=== PATIENT | male | born 1965 | race Caucasian/White ===

== ENCOUNTER 2019-04-30 13:57 | Observation (INO) | payer BC, OTHER ==
[2019-04-30] MEDS ORDERED: NALOXONE 0.4 MG/ML 1 ML VIAL IV PRN (14:56)
[2019-04-30] MEDS ORDERED: TEMAZEPAM 15 MG CAP PO PRN (14:59)
[2019-04-30] MEDS ORDERED: ALPRAZolam 0.25 MG TAB PO PRN (14:59)
[2019-04-30] MEDS ORDERED: SODIUM CHLORIDE 0.9% 1,000 ML IV SCH (15:00)
[2019-04-30] MEDS: ACETAMINOPHEN TAB 325 MG TAB PO PRN ×2 (15:38→23:00)
--- NOTE | 2019-04-30 15:39 | XR ---
EXAMINATION TYPE: XR chest 1V portable DATE OF EXAM: 04/30/2019 COMPARISON: NONE HISTORY: Short of breath TECHNIQUE: Single view FINDINGS: Heart and mediastinum are normal. Lungs are clear. Diaphragm is normal. Bony thorax appears normal. IMPRESSION: Normal chest.
[2019-04-30 15:42] LABS: Basophils % (A) 0 %; Eosinophils # (A) 0.2 k/uL (0-0.7); Eosinophils % (A) 3 %; HCT 41.8 % (39.0-53.0); HGB 14.3 gm/dL (13.0-17.5); Lymphocytes # (A) 0.5 k/uL (1.0-4.8); Lymphocytes % (A) 8 %; MCH 30.5 pg (25.0-35.0); MCHC 34.3 g/dL (31.0-37.0); MCV 89.1 fL (80.0-100.0); Mean Platelet Volume 8.2; Monocytes # (A) 0.5 k/uL (0-1.0); Monocytes % (A) 9 %; Neutrophils # (A) 4.4 k/uL (1.3-7.7); Neutrophils % (A) 78 %; Platelet Count 130 k/uL (150-450); RBC 4.69 m/uL (4.30-5.90); RDW 13.3 % (11.5-15.5); WBC 5.6 k/uL (3.8-10.6)
[2019-04-30 15:52] LABS: ALT 37 U/L (4-49); AST 40 U/L (17-59); African American GFR (CKD) >90 (>60 ml/min/1.73 sqM); Albumin 4.9 g/dL (3.5-5.0); Alkaline Phosphatase 55 U/L (38-126); Anion Gap 11 mmol/L; Blood Urea Nitrogen 15 mg/dL (9-20); Calcium 9.4 mg/dL (8.4-10.2); Carbon Dioxide 24 mmol/L (22-30); Chloride 100 mmol/L (98-107); Glucose 117 mg/dL (74-99); Magnesium 1.7 mg/dL (1.6-2.3); Non-African American GFR(CKD) >90 (>60 ml/min/1.73 sqM); Potassium 4.6 mmol/L (3.5-5.1); Sodium 135 mmol/L (137-145); Total Bilirubin 0.7 mg/dL (0.2-1.3); Total Protein 7.5 g/dL (6.3-8.2)
[2019-04-30] MEDS: METOPROLOL TARTRATE 12.5 MG TAB PO SCH ×2 (17:41→23:00)
[2019-04-30] MEDS: AMOXIC-POT CLAV 875-125MG 1 EACH TAB PO SCH ×3 (17:41→23:02)
[2019-04-30] MEDS ORDERED: FLUTICASONE 50MCG/SPRAY NASAL 16GM EA NOSTRIL PRN (18:32)
[2019-04-30] MEDS ORDERED: PSEUDOEPHEDRINE 30 MG TAB PO PRN (18:36)
--- NOTE | 2019-04-30 20:29 | HP ---
HISTORY AND PHYSICAL CHIEF COMPLAINT: Sinus congestion and cough and fever. HISTORY OF PRESENT ILLNESS: This 53-year-old gentleman with a past history of apparent irregular heart rhythm, history of DJD, sleep apnea/CPAP/history of anxiety, depression, PTSD, being followed by [facility] in the outpatient setting, apparently not feeling well over the past several days. Patient went to [facility] [place] and Dr. Koch called me about atrial fibrillation. The patient was directly transferred to [facility] and admitted for further evaluation and treatment. There is no history of fever, rigors or chills. No history of headache, loss of consciousness, seizures at this time. PAST MEDICAL HISTORY: Atrial fibrillation, history of cardiac irregularity, history of DJD, sleep apnea, anxiety, depression, PTSD. MEDICATIONS: Medications prior to admission include home medications are: 1. [place] spray. 2. [place]-3 fatty acid. 3. Multivitamins. 4. Glucosamine. 5. Fluticasone nasal spray. 6. Celexa. 7. Zyrtec. 8. Augmentin 875 g 1 p.o. b.i.d. ALLERGIES: None. FAMILY HISTORY: Family history of CHF, myocardial infarction, significant heart history in the family. 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 No history of smoking. Occasional alcohol intake. REVIEW OF SYSTEMS: ENT: No diminished vision. No diminished hearing. CARDIOVASCULAR system as mentioned earlier. RESPIRATIONS as mentioned earlier. GI no nausea or vomiting. no dysuria. Nervous system: No numbness or weakness. ALLERGY/IMMUNOLOGY: No asthma or hayfever. MUSCULOSKELETAL as mentioned earlier. Hematology/Oncology: No history of anemia. ENDOCRINE: No history of diabetes or hypothyroidism. Constitutional: As mentioned earlier. DERMATOLOGY: Negative. RHEUMATOLOGY negative. PSYCHIATRY as mentioned earlier. PHYSICAL EXAM: Patient is alert, oriented x3. Pulse is 78. Blood pressure is 120/70. Respiration 16. Temperature 98.8, T-max 100 degrees Fahrenheit, pulse ox 98% on room air. HEENT: Conjunctivae normal. NECK: No JVD. CARDIOVASCULAR: S1, S2 muffled. RESPIRATORY SYSTEM: Breath sounds diminished at the bases. No rhonchi. No crackles. ABDOMEN: Soft, nontender. No mass palpable. LEGS: No edema. No swelling. NERVOUS SYSTEM: Higher functions as mentioned earlier. Moves all four limbs. No focal motor or sensory deficits. Lymphatics: No lymph nodes palpable in the neck, axillae or groin. SKIN: No ulcer, rash or bleeding. JOINTS: No active deforming arthropathy. LABS: WBC 5.6, hemoglobin 14.3, platelets 130. Sodium 135. Creatinine is 0.85. Influenza negative. ASSESSMENT: 1. Fever, possible upper respiratory infection. 2. Atrial fibrillation. 3. Degenerative joint disease. 4. Sleep apnea. 5. Anxiety, depression, PTSD. 6. Mild thrombocytopenia. 7. Mild hyponatremia. 8. Increased random blood sugar. RECOMMENDATIONS AND DISCUSSION: In this 53-year-old gentleman who presented with multiple complex medical issues, we will monitor the patient closely, continue the current medications, management and symptomatic treatment. I recommend broad-spectrum antibiotics. Cardiology consultation. Telemetry. Two-D echo with Doppler. A fasting lipid profile. I would also recommend further cardiovascular workup including possible stress test as an outpatient because of the patient's cardiac history. Otherwise, prognosis guarded because of multiple complex medical issues. Further recommendations to follow. A copy of dictation being [facility] [place]. MMODL / IJN: [id number] /
[2019-04-30 21:36] LABS: Appearance,Urine Clear (Clear); Bilirubin,Urine Negative (Negative); Blood,Urine Negative (Negative); Color,Urine Colorless; Glucose,Urine (UA) Negative (Negative); Ketones,Urine Negative (Negative); Leukocyte Esterase,Urine Negative (Negative); Nitrite,Urine Negative (Negative); PH, Urine 6.5 (5.0-8.0); Protein,Urine Negative (Negative); Specific Gravity,Urine 1.006 (1.001-1.035); Urobilinogen,Urine <2.0 mg/dL (<2.0)
[2019-05-01] MEDS ORDERED: NON FORMULARY DRUG (Glucosam/Chon-Msm1/C/Mang/Bosw [Glucosamine-Chondroitin Tablet] 1 TAB) PO SCH (07:00)
[2019-05-01] MEDS ORDERED: NON FORMULARY DRUG (Omega-3 Fatty Acids/Fish Oil [Fish Oil 1,000 Mg Softgel] 1 CAP) PO SCH (07:00)
[2019-05-01] MEDS ORDERED: LORATADINE 10 MG TAB PO SCH (07:00)
[2019-05-01 07:19] LABS: Basophils % (A) 1 %; Eosinophils # (A) 0.2 k/uL (0-0.7); Eosinophils % (A) 3 %; HCT 42.2 % (39.0-53.0); HGB 14.4 gm/dL (13.0-17.5); Lymphocytes # (A) 1.3 k/uL (1.0-4.8); Lymphocytes % (A) 23 %; MCH 30.1 pg (25.0-35.0); MCHC 34.1 g/dL (31.0-37.0); MCV 88.3 fL (80.0-100.0); Mean Platelet Volume 8.1; Monocytes # (A) 0.7 k/uL (0-1.0); Monocytes % (A) 12 %; Neutrophils # (A) 3.4 k/uL (1.3-7.7); Neutrophils % (A) 59 %; Platelet Count 149 k/uL (150-450); RBC 4.77 m/uL (4.30-5.90); RDW 13.4 % (11.5-15.5); WBC 5.7 k/uL (3.8-10.6)
[2019-05-01 07:30] LABS: African American GFR (CKD) >90 (>60 ml/min/1.73 sqM); Anion Gap 8 mmol/L; Blood Urea Nitrogen 17 mg/dL (9-20); Carbon Dioxide 24 mmol/L (22-30); Chloride 102 mmol/L (98-107); Cholesterol 156 mg/dL (<200); Glucose 99 mg/dL (74-99); HDL Cholesterol 22 mg/dL (40-60); LDL Cholesterol,Calculated 62 mg/dL (0-99); Non-African American GFR(CKD) 85 (>60 ml/min/1.73 sqM); Potassium 4.5 mmol/L (3.5-5.1); Sodium 134 mmol/L (137-145); Triglycerides 362 mg/dL (<150)
[2019-05-01] MEDS ORDERED: PANTOPRAZOLE 40 MG TABLET PO SCH (07:30)
--- NOTE | 2019-05-01 08:08 | P.CRDCN ---
History of Present Illness Consult date: 05/01/19 Requesting physician: Alyson Armstrong Consult reason: atrial fibrillation Chief complaint: A. fib History of present illness: This is a pleasant 53-year-old gentleman with no prior documented history of hypertension, nondiabetic, no hyperlipidemia, no prior history of stroke, he is a nonsmoker, rarely drinks alcohol, drinks one to 2 cups of coffee per day. He does have a strong family history of premature coronary artery disease in his brother who had a myocardial infarction. Patient states that he felt like he was developing a sinus infection, went to the clinic to be seen, and EKG was performed there which showed atrial fibrillation and the patient was recommended to come to the hospital for further evaluation and treatment. Patient does have an apple watchman states that in January it was telling him that he was in atrial fibrillation, however because he is completely as ymptomatic he thought the watch was wrong. Atrial fibrillation with controlled ventricular response. Blood pressure this morning 114/70 with a heart rate in the 60s, 94% on room air. Temperature 101.5 at midnight, 98.4 this morning. White blood cell count 5.7, hemoglobin 14.4, platelet count 149. Sodium 134, potassium 4.5, BUN 17, creatinine 0.9. Magnesium 1.7. Troponins negative 3. Cholesterol 156, LDL 62, HDL 22, triglycerides 156, TSH 0.88. Influenza A and B are negative. Past Medical History Past Medical History: Atrial Fibrillation, Osteoarthritis (OA), Sleep Apnea/CPAP/BIPAP History of Any Multi-Drug Resistant Organisms: None Reported Past Surgical History: Hernia Repair Additional Past Surgical History / Comment(s): hernia repair at age 2 Past Anesthesia/Blood Transfusion Reactions: No Reported Reaction Past Psychological History: Anxiety, Depression, PTSD Smoking Status: Never smoker - Past Family History Father Family Medical History: Congestive Heart Failure (CHF), Myocardial Infarction (ME) Brother(s) Family Medical History: Myocardial Infarction (ME) Additional Family Medical History / Comment(s): age 40; from [place] Medications and Allergies Home Medications Medication Instructions Recorded Confirmed Type Amoxic-Pot Clav 875-125Mg 1 tab PO BID 04/30/19 04/30/19 History [Augmentin 875-125] Cetirizine HCl [Zyrtec] 10 mg PO DAILY@0700 04/30/19 04/30/19 History Citalopram Hydrobromide [CeleXA] 30 mg PO AC-LUNCH 04/30/19 04/30/19 History Fluticasone Nasal [place] [Flonase 1 spray EA NOSTRIL BID PRN 04/30/19 04/30/19 History Nasal [place]] Glucosam/Juan [place]-Msm1/C/Duy/Bosw 1 tab PO TID@0700,1200,1800 04/30/19 04/30/19 History [Glucosamine-Chondroitin Tablet] Multivitamins, Thera [Multivitamin 1 tab PO DAILY 04/30/19 04/30/19 History (formulary)] [place]-3 Fatty Acids/Fish Oil [Fish 1 cap PO BID@0700,1800 04/30/19 04/30/19 History Oil 1,000 mg Softgel] Sodium Chloride [[place]] 1 spray EA NOSTRIL BID PRN 04/30/19 04/30/19 History Allergies Allergy/AdvReac Type Severity Reaction Status Date / Time No Known Drug Allergies Allergy Unknown Verified 04/30/19 16:19 Physical Exam Vitals: Vital Signs Temp Pulse Resp BP Pulse Ox 05/01/19 04:00 98.4 F 67 18 114/77 94 L 05/01/19 00:00 101.5 F H 78 16 115/57 94 L 04/30/19 20:00 98.7 F 66 16 99/62 95 04/30/19 17:46 16 04/30/19 17:35 98.8 F 78 16 128/77 96 04/30/19 14:56 95 04/30/19 14:50 16 04/30/19 14:35 100.0 F H 82 16 131/89 96 Intake and Output 04/30/19 05/01/19 05/01/19 22:59 06:59 14:59 Intake Total 480 40 Output Total 300 700 Balance 180 -660 Intake: IV 40 40 Invasive Line 1 40 40 Oral 440 Output: Urine 300 700 Other: # Voids 2 Weight 93.3 kg PHYSICAL EXAMINATION: GENERAL: 53-year-old gentleman in no acute distress at the time of my examination HEENT: Head is atraumatic, normocephalic. Pupils equal, round. Sclera anicteric. Conjunctiva are clear. Mucous membranes of the mouth are moist. Neck is supple. There is no elevated jugular venous pressure. No carotid bruit is heard. HEART EXAMINATION: Heart S1 and S2 irregularly irregular CHEST EXAMINATION: Lungs are clear to auscultation and precussion. No chest wall tenderness is noted on palpation or with deep breathing. ABDOMEN: Soft, nontender. Bowel sounds are heard. No organomegaly noted. EXTREMITIES: 2+ peripheral pulses with no evidence of peripheral edema and no calf tenderness noted. NEUROLOGIC patient is awake, alert and oriented 3 . . Results 05/01/19 06:47 05/01/19 06:47 Cardiac Enzymes 04/30/19 04/30/19 05/01/19 Range/Units 15:30 17:40 00:42 AST 40 (17-59) U/L Troponin I <0.012 <0.012 (0.000-0.034) ng/mL 05/01/19 Range/Units 06:47 AST (17-59) U/L Troponin I <0.012 (0.000-0.034) ng/mL Lipids 05/01/19 Range/Units 06:47 Triglycerides 362 H (<150) mg/dL Cholesterol 156 (<200) mg/dL HDL Cholesterol 22 L (40-60) mg/dL CBC 04/30/19 05/01/19 Range/Units 15:30 06:47 WBC 5.6 5.7 (3.8-10.6) k/uL RBC 4.69 4.77 (4.30-5.90) m/uL Hgb 14.3 14.4 (13.0-17.5) gm/dL Hct 41.8 42.2 (39.0-53.0) % Plt Count 130 L 149 L (150-450) k/uL Comprehensive Metabolic Panel 04/30/19 05/01/19 Range/Units 15:30 06:47 Sodium 135 L 134 L (137-145) mmol/L Potassium 4.6 4.5 (3.5-5.1) mmol/L Chloride 100 102 (98-107) mmol/L Carbon Dioxide 24 24 (22-30) mmol/L BUN 15 17 (9-20) mg/dL Creatinine 0.85 0.99 (0.66-1.25) mg/dL Glucose 117 H 99 (74-99) mg/dL Calcium 9.4 9.0 (8.4-10.2) mg/dL AST 40 (17-59) U/L ALT 37 (4-49) U/L Alkaline Phosphatase 55 (38-126) U/L Total Protein 7.5 (6.3-8.2) g/dL Albumin 4.9 (3.5-5.0) g/dL Current Medications Generic Name Dose Route Start Last Admin Trade Name Freq PRN Reason Stop Dose Admin Acetaminophen 650 mg 04/30/19 14:56 04/30/19 23:00 Tylenol Tab PO 650 mg Q6HR PRN Administration Mild Pain or Fever > 100.5 Alprazolam 0.25 mg 04/30/19 14:59 Xanax PO TID PRN Anxiety Amoxicillin/Clavulanate Potassium 1 each 04/30/19 15:15 04/30/19 23:02 Augmentin 875-125 PO 1 each Q12HR YOKASTA Administration Citalopram Hydrobromide 30 mg 05/01/19 12:30 Celexa PO AC-LUNCH [facility] Fluticasone Propionate 1 spray 04/30/19 18:32 Flonase Nasal [place] EA NOSTRIL BID PRN Allergy Symptoms Sodium Chloride 1,000 mls @ 20 mls/hr 04/30/19 15:00 04/30/19 15:39 Saline 0.9% IV 20 mls/hr .Q24H YOKASTA Administration Loratadine 10 mg 05/01/19 07:00 05/01/19 06:33 Claritin PO 10 mg DAILY@0700 YOKASTA Administration Metoprolol Tartrate 12.5 mg 04/30/19 16:45 04/30/19 23:00 Lopressor PO 12.5 mg BID YOKASTA Administration Multivitamins 1 each 05/01/19 09:00 Theragran PO DAILY YOKASTA Naloxone HCl 0.2 mg 04/30/19 14:56 Narcan IV Q2M PRN Opioid Reversal Pantoprazole Sodium 40 mg 05/01/19 07:30 05/01/19 06:33 Protonix PO 40 mg AC-BRKFST YOKASTA Administration Pseudoephedrine HCl 30 mg 04/30/19 18:36 Sudafed PO Q6HR PRN Nasal Congestion Temazepam 15 mg 04/30/19 14:59 Restoril PO HS PRN Insomnia Intake and Output 04/30/19 05/01/19 05/01/19 22:59 06:59 14:59 Intake Total 480 40 Output Total 300 700 Balance 180 -660 Intake: IV 40 40 Invasive Line 1 40 40 Oral 440 Output: Urine 300 700 Other: # Voids 2 Weight 93.3 kg 05/01/19 06:47 05/01/19 06:47 EKG Interpretations (text) EKG shows atrial fibrillation with a controlled ventricular response Assessment and Plan Plan: Assessment and plan #1 atrial fibrillation, appears to be of new onset for the patient #2 fever with possible upper respiratory infection #3 sleep apnea #4 anxiety, depression, PTSD Plan We will obtain an echocardiogram with Doppler study. Patient's TSH level is normal. He has been initiated on beta darío, metoprolol 12-1/2 mg one tablet by mouth twice a day, heart rate in the 60s this morning. We will put the patient on Eliquis 5mg PO BID. The patient has a CHADSVASC score of 0. However the plan would be to clear the patient on his current infection, scheduled patient for a CHERI and cardioversion electively as an outpatient. Further recommendations to follow. DNP note has been reviewed, I agree with a documented findings and plan of care. Patient was seen and examined.
[2019-05-01] MEDS ORDERED: APIXABAN 5 MG TAB PO SCH (09:00)
[2019-05-01] MEDS ORDERED: MULTIVITAMINS, THERA 1 EACH TAB PO SCH (09:00)
[2019-05-01] MEDS: METOPROLOL TARTRATE 12.5 MG TAB PO SCH (09:39)
[2019-05-01] MEDS: AMOXIC-POT CLAV 875-125MG 1 EACH TAB PO SCH (09:39)
[2019-05-01 10:47] VITALS: BP 119/71; PULSE 73; RESP 20; TEMP 98.8
--- NOTE | 2019-05-01 11:30 | ECHOF ---
Referral Reason:afib MEASUREMENTS -------- HEIGHT: 172.7 cm WEIGHT: 93.0 kg BP: 114/77 RVIDd: 3.4 cm (< 3.3) IVSd: 1.5 cm (0.6 - 1.1) LVIDd: 4.4 cm (3.9 - 5.3) LVPWd: 1.3 cm (0.6 - 1.1) IVSs: 1.7 cm LVIDs: 3.0 cm LVPWs: 1.6 cm LA Diam: 3.9 cm (2.7 - 3.8) LAESV Index (A-L): 23.96 ml/m Ao Diam: 3.6 cm (2.0 - 3.7) MV EXCURSION: 18.872 mm (> 18.000) MV EF SLOPE: 133 mm/s (70 - 150) EPSS: 0.5 cm RAP: 5.00 mmHg RVSP: 25.12 mmHg TAPSE: 18.66 mm FINDINGS -------- Atrial fibrillation. This was a technically good study. The left ventricular size is normal. There is moderate concentric left ventricular hypertrophy. O verall left ventricular systolic function is normal with, an EF between 55 - 60 %. The right ventricle is mildly enlarged. Normal LA size by volume 22+/-6 ml/m2. The right atrium is normal in size. Interatrial and interventricular septum intact. The aortic valve is trileaflet and appears structurally normal. Mild mitral regurgitation is present. Mild tricuspid regurgitation present. Right ventricular systolic pressure is normal at < 35 mmHg. Trace/mild (physiologic) pulmonic regurgitation. The aortic root size is normal. Normal inferior vena cava with normal inspiratory collapse consistent with estimated right atrial pre ssure of 5 mmHg. The inferior vena cava is mildly dilated. There is no pericardial effusion. CONCLUSIONS -------- 1. Atrial fibrillation. 2. This was a technically good study. 3. The left ventricular size is normal. 4. There is moderate concentric left ventricular hypertrophy. 5. Overall left ventricular systolic function is normal with, an EF between 55 - 60 %. 6. The right ventricle is mildly enlarged. 7. Normal LA size by volume 22+/-6 ml/m2. 8. The right atrium is normal in size. 9. Interatrial and interventricular septum intact. 10. The aortic valve is trileaflet and appears structurally normal. 11. Mild mitral regurgitation is present. 12. Mild tricuspid regurgitation present. 13. Right ventricular systolic pressure is normal at < 35 mmHg. 14. Trace/mild (physiologic) pulmonic regurgitation. 15. The aortic root size is normal. 16. Normal inferior vena cava with normal inspiratory collapse consistent with estimated right atrial pressure of 5 mmHg. 17. The inferior vena cava is mildly dilated. 18. There is no pericardial effusion. METER SETTER: Kajal Valdes RDCS
[2019-05-01] MEDS ORDERED: CITALOPRAM HYDROBROMIDE 10 MG TAB PO SCH (12:30)
--- NOTE | 2019-05-02 08:52 | P.DS ---
Providers Date of admission: 04/30/19 14:24 Expected date of discharge: 05/01/19 Attending physician: Alyson Armstrong Consults: 04/30/19 14:57 Consult Physician Routine Consulting Provider: Sheila Whiting Consult Reason/Comments: afib Do you want consulting provider notified?: Yes Primary care physician: Stated None Hospital Course: Final diagnosis Fever, possible upper respiratory infection Atrial fibrillation Degenerative joint disease Sleep apnea Anxiety, depression, PTSD Mild thrombocytopenia Mild hyponatremia Increased random blood sugar Discharge disposition Patient is being discharged in stable condition with guarded prognosis to home and will follow-up with Dr. Sabillon in the [facility] upon discharge. Patient will also follow-up with cardiology in 1-2 weeks to discuss possible CHERI with cardioversion in the outpatient setting. Patient will continue with metoprolol along with Eliquis upon discharge. Total time taken is 35 minutes. History of present illness This is a 53-year-old male who was recently admitted from [facility] urgent care for atrial fibrillation and is being closely monitored. Cardiology is following. Patient underwent an echo showing atrial fibrillation with overall left ventricular systolic function being normal with an EF between 55 and 60%. There is also some mild mitral and tricuspid regurgitation present. and patient is currently on Augmentin for possible upper respiratory infection and will need to continue until infection is clear and will follow-up with Dr. Sabillon along with cardiology for possible CHERI with cardioversion in the outpatient setting. Patient was started on Eliquis and metoprolol with controlled heart rate at this time. Patient continues to have a cough and will be given Robitussin for di scharge. Patient instructed to continue taking his Augmentin until finished. Currently no reports of chest pain, shortness of breath, or palpitations. Patient is afebrile. No reports of nausea or vomiting and patient is tolerating diet. Guarded prognosis. On exam vital signs are stable. Temp is 98.8 F, pulse is 73, respirations are 20, blood pressure is 119/71, oxygen saturation is 98% on room air. Cardio S1, S2 are muffled. Respiratory system shows diminished breath sounds at the bases with rhonchi or wheezing noted. Abdomen is soft and nontender. Nervous system shows no focal deficits. Please refer to medication reconciliation sheet for a list of medications. Patient Condition at Discharge: Stable Plan - Discharge Summary Discharge Rx Participant: No New Discharge Prescriptions: New Apixaban [Eliquis] 5 mg PO BID 30 Days #60 tab Metoprolol Tartrate [Lopressor] 12.5 mg PO BID 30 Days #60 tab guaiFENesin SYRUP 100MG/5ML [Robitussin] 0 mg PO TID PRN #120 ml PRN Reason: Cough Continue [place]-3 Fatty Acids/Fish Oil [Fish Oil 1,000 mg Softgel] 1 cap PO BID@0700,1800 Multivitamins, Thera [Multivitamin (formulary)] 1 tab PO DAILY Glucosam/[place]-Msm1/C/Duy/Bosw [Glucosamine-Chondroitin Tablet] 1 tab PO TID@0700,1200,1800 Citalopram Hydrobromide [CeleXA] 30 mg PO AC-LUNCH Cetirizine HCl [Zyrtec] 10 mg PO DAILY@0700 Fluticasone Nasal [place] [Flonase Nasal [place]] 1 spray EA NOSTRIL BID PRN PRN Reason: Allergy Symptoms Amoxic-Pot Clav 875-125Mg [Augmentin 875-125] 1 tab PO BID Sodium Chloride [[place]] 1 spray EA NOSTRIL BID PRN PRN Reason: Congestion Discharge Medication List Amoxic-Pot Clav 875-125Mg [Augmentin 875-125] 1 tab PO BID 04/30/19 [History] Cetirizine HCl [Zyrtec] 10 mg PO DAILY@0700 04/30/19 [History] Citalopram Hydrobromide [CeleXA] 30 mg PO AC-LUNCH 04/30/19 [History] Fluticasone Nasal [place] [Flonase Nasal [place]] 1 spray EA NOSTRIL BID PRN 04/30/19 [History] Glucosam/[place]-Msm1/C/Duy/Bosw [Glucosamine-Chondroitin Tablet] 1 tab PO TID@0700,1200,1800 04/30/19 [History] Multivitamins, Thera [Multivitamin (formulary)] 1 tab PO DAILY 04/30/19 [History] [place]-3 Fatty Acids/Fish Oil [Fish Oil 1,000 mg Softgel] 1 cap PO BID@0700,1800 04/30/19 [History] Sodium Chloride [[place]] 1 spray EA NOSTRIL BID PRN 03/08/20 [History] Apixaban [Eliquis] 5 mg PO BID 30 Days #60 tab 05/01/19 [Rx] Metoprolol Tartrate [Lopressor] 12.5 mg PO BID 30 Days #60 tab 05/01/19 [Rx] guaiFENesin SYRUP 100MG/5ML [Robitussin] 0 mg PO TID PRN #120 ml 05/01/19 [Rx] Follow up Appointment(s)/Referral(s): Sheila Whiting MD [STAFF PHYSICIAN] - 1 Week Nonstaff,Physician [REFERRING] - 05/08/19 8:30 am (Dr Kimo Farley [facility] [place] Wednesday) Patient Instructions/Handouts: A-fib (Atrial Fibrillation) (DC), Safe Use of Anticoagulants (DC) Activity/Diet/Wound Care/Special Instructions: Patient to follow-up with primary care provider upon discharge Patient follow-up with cardiology in the outpatient setting upon discharge Activity Limited until follow-up Continue current diet Continue with antibiotics until finished Discharge Disposition: HOME SELF-CARE
== END 2019-05-01 14:55 | disposition home or self-care (01) ==
LOC: 3SCARD 14:24
PROVIDERS: ADMIT Hospitalist; ATTEND Hospitalist
DX: R50.9 Fever, unspecified (principal); R05 Cough; I48.91 Unspecified atrial fibrillation; M19.90 Unspecified osteoarthritis, unspecified site; E87.1 Hypo-osmolality and hyponatremia; R73.9 Hyperglycemia, unspecified; D69.6 Thrombocytopenia, unspecified; I08.1 Rheumatic disorders of both mitral and tricuspid valves; G47.30 Sleep apnea, unspecified; Z99.89 Dependence on other enabling machines and devices; F41.9 Anxiety disorder, unspecified; F32.9 Major depressive disorder, single episode, unspecified; F43.10 Post-traumatic stress disorder, unspecified; Z79.899 Other long term (current) drug therapy; Z82.49 Family history of ischemic heart disease and other diseases of the circulatory system
CPT/HCPCS: 93306; 80061; 80053; 80048; 84443; 83735; 84484 ×2; 85025 ×2; 81003; 87502; 71045; G0378 ×2; G0379